=== PATIENT | male | born 1975 | race Caucasian/White ===

== ENCOUNTER 2016-05-05 22:46 | Emergency (ER) | payer MEDICAID ==
[~2016-05-05 22:46] MED LIST: BUPR300T52 PO; FLUO40CA8 PO; GABA800T2 PO; QUET50TA PO; TOPI200T PO
== END 2016-05-05 23:57 | disposition left against medical advice (07) ==
LOC: ER 22:54
DX: Z53.21 Procedure and treatment not carried out due to patient leaving prior to being seen by health care provider (principal)

== ENCOUNTER 2016-07-30 20:48 | Emergency (ER) | payer MEDICAID ==
[~2016-07-30] VITALS: Ht 170.2 cm; Wt 68.0 kg
[2016-07-30] MEDS ORDERED: LORAZEPAM 0.5 MG TABLET PO ONE (21:30)
[2016-07-30] MEDS ORDERED: SULFAMETH/TRIMETH 800/160 MG TABLET PO ONE (21:30)
--- NOTE | 2016-07-30 21:32 | NUR ---
Pt to room and c/o "cellulitis" to bilat hands and feet. Pt c/o severe pain. No redness, no swelling noted. Pt seen by MD. Awaiting further orders.
--- NOTE | 2016-07-30 21:39 | NUR ---
Pt seen by MD. Pt stable for discharge per MD. Pt given ACI. Pt verbalized understanding of dc instructions.
[2016-07-30 21:40] VITALS: BP 136/74
[2016-07-30] MEDS ORDERED: LORAZEPAM 1 MG TABLET ONE (21:47)
[2016-07-30] MEDS ORDERED: SULFAMETH/TRIMETH 800/160 MG TABLET ONE (21:47)
--- NOTE | 2016-07-30 21:58 | NUR ---
pt ambulated out of er with steady gait.
== END 2016-07-30 21:58 | disposition home or self-care (01) ==
LOC: ER 20:52
DX: L03.116 Cellulitis of left lower limb (principal); J45.909 Unspecified asthma, uncomplicated
CPT/HCPCS: A4663

== ENCOUNTER 2016-10-29 17:58 | Emergency (ER) | payer MEDICAID ==
[~2016-10-29] VITALS: Ht 170.2 cm; Wt 70.3 kg
--- NOTE | 2016-10-29 18:45 | NUR ---
at the bedside with the pt for MSE.
--- NOTE | 2016-10-29 21:15 | NUR ---
Patient discharged to home in stable conditon. Written and verbal after care instructions given. Patient verbalizes understanding of instructions. PATIENT LEFT WITH STABLE GAIT.
[2016-10-29 21:16] VITALS: BP 136/83
== END 2016-10-29 21:16 | disposition home or self-care (01) ==
LOC: ER 17:59
DX: S80.11XA Contusion of right lower leg, initial encounter (principal); L73.9 Follicular disorder, unspecified; J45.909 Unspecified asthma, uncomplicated; F17.200 Nicotine dependence, unspecified, uncomplicated; Z59.0 Homelessness; F15.10 Other stimulant abuse, uncomplicated; X58.XXXA Exposure to other specified factors, initial encounter; Y93.89 Activity, other specified; Y92.9 Unspecified place or not applicable; Y99.9 Unspecified external cause status
CPT/HCPCS: 73590; 93971; 99284; A4663

== ENCOUNTER 2017-01-24 03:03 | Emergency (ER) | payer MEDICAID ==
[~2017-01-24] VITALS: Ht 170.2 cm; Wt 70.3 kg
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
[2017-01-24] MEDS ORDERED: VANCOMYCIN IV 1,000 MG in IV DEXTROSE 5% 250 ML IV ONE (04:00)
[2017-01-24] MEDS ORDERED: VANCOMYCIN 1000 MG VIAL ONE (04:46)
--- NOTE | 2017-01-24 05:05 | NUR ---
Removed pt's ring on left pinky with elastic band wrap.
--- NOTE | 2017-01-24 07:04 | NUR ---
Herve-taped right hand pinky and ring fingers, per Dr. Jaquez.
[2017-01-24] MEDS ORDERED: ONDANSETRON IV *ER 4 MG/2 ML VIAL IV ONE (07:15)
[2017-01-24] MEDS ORDERED: HYDROMORPHONE 1 MG/1 ML DISP.SYRIN IV ONE (07:15)
[2017-01-24] MEDS ORDERED: ONDANSETRON 4 MG/2 ML VIAL ONE (07:24)
[2017-01-24] MEDS ORDERED: HYDROMORPHONE 4 MG/1 ML DISP.SYRIN ONE (07:24)
[2017-01-24 07:45] VITALS: BP 142/77
--- NOTE | 2017-01-24 07:46 | NUR ---
pt condition stable d/c home with instructions after care reviewed understood left er via self alert, oriented x4, ambulatory with steady gait.
== END 2017-01-24 07:47 | disposition home or self-care (01) ==
LOC: ER 03:03
DX: S62.92XA Unspecified fracture of left hand, initial encounter for closed fracture (principal); S63.616A Unspecified sprain of right little finger, initial encounter; L03.114 Cellulitis of left upper limb; F11.10 Opioid abuse, uncomplicated; F15.10 Other stimulant abuse, uncomplicated; F32.9 Major depressive disorder, single episode, unspecified; J45.909 Unspecified asthma, uncomplicated; Z59.0 Homelessness; F17.200 Nicotine dependence, unspecified, uncomplicated; X58.XXXA Exposure to other specified factors, initial encounter; Y93.89 Activity, other specified; Y92.89 Other specified places as the place of occurrence of the external cause; Y99.8 Other external cause status
CPT/HCPCS: 73130; A4663; J1170; J2405; J3370; J7060

== ENCOUNTER 2018-04-07 15:36 | Emergency (ER) | payer SELFPAY ==
[~2018-04-07] VITALS: Ht 167.6 cm; Wt 63.5 kg
--- NOTE | 2018-04-07 16:16 | NUR ---
Patient discharged to home in stable conditon. Written and verbal after care instructions given. Patient verbalizes understanding of instructions.PT WALKS IN STEADY GAIT. NO DIZZINESS,
[2018-04-07] MEDS ORDERED: LIDOCAINE HCL 2% 20 ML VIAL TP ONE (16:30)
== END 2018-04-07 16:20 | disposition home or self-care (01) ==
LOC: MERGE 15:38 → ER 15:38
DX: S61.412A Laceration without foreign body of left hand, initial encounter (principal); W25.XXXA Contact with sharp glass, initial encounter; Y93.89 Activity, other specified; Y92.89 Other specified places as the place of occurrence of the external cause; Y99.8 Other external cause status
CPT/HCPCS: A4217; A4663

== ENCOUNTER 2018-04-20 11:41 | Emergency (ER) | payer MEDICAID ==
[~2018-04-20] VITALS: Ht 167.6 cm; Wt 63.5 kg
--- NOTE | 2018-04-20 11:48 | NUR ---
PT A/OX4, PRESENTS TO THE ER FOR SUTURE REMOVAL OF THE L HAND. VSS. SUTURE SITE NON-EDEMATOUS AND NO DRAINAGE. PT DENIES PAIN, C/P, SOB, N/V/D, DIZZINESS, HEADACHE.
--- NOTE | 2018-04-20 11:51 | NUR ---
LAURA PEREZ AT BEDSIDE FOR MSE.
--- NOTE | 2018-04-20 11:57 | NUR ---
SUTURES IN L HAND REMOVED BY ER MD. Patient discharged to home in stable conditon. Written and verbal after care instructions given. Patient verbalizes understanding of instructions. ALL BELONGINGS W/ PT. PT SELF-AMBUALTED W/O DIFFICULTY.
[2018-04-20 11:58] VITALS: BP 130/76
== END 2018-04-20 11:58 | disposition home or self-care (01) ==
LOC: ER 11:41 → MERGE 11:41 → ER 11:58
DX: S61.412D Laceration without foreign body of left hand, subsequent encounter (principal); W26.0XXD Contact with knife, subsequent encounter

== ENCOUNTER 2018-06-21 13:00 | Emergency (ER) | payer MEDICAID ==
[~2018-06-21] VITALS: Ht 165.1 cm; Wt 66.2 kg
--- NOTE | 2018-06-21 13:18 | NUR ---
PT IS IN ROOM #2A. DR SORIANO EVALUATED THE PT. [employer] OFFICERS TOOK PT'S REPORT.
[2018-06-21] MEDS ORDERED: HYDROCODONE/APAP 5-325MG TABLET PO ONE (13:45)
[2018-06-21] MEDS ORDERED: HYDROCODONE/APAP 5-325MG TABLET ONE (13:49)
--- NOTE | 2018-06-21 16:00 | NUR ---
PT WAS D/C'd FROM [facility]. D/C INSTRUCTIONS GIVEN TO THE PT.
[2018-06-21 16:09] VITALS: BP 127/72
== END 2018-06-21 16:10 | disposition home or self-care (01) ==
LOC: ER 13:00
DX: S01.01XA Laceration without foreign body of scalp, initial encounter (principal); J45.909 Unspecified asthma, uncomplicated; F17.200 Nicotine dependence, unspecified, uncomplicated; F11.10 Opioid abuse, uncomplicated; F15.10 Other stimulant abuse, uncomplicated; X99.2XXA Assault by sword or dagger, initial encounter; Y93.89 Activity, other specified; Y92.89 Other specified places as the place of occurrence of the external cause; Y99.8 Other external cause status
CPT/HCPCS: 70450; A4217; A4663

== ENCOUNTER 2018-06-29 17:36 | Emergency (ER) | payer MEDICAID ==
[~2018-06-29] VITALS: Ht 167.6 cm; Wt 65.8 kg
--- NOTE | 2018-06-29 18:06 | NUR ---
PT WAS EVALUATED BY DR OCAMPO. PT TOLERATED TO PROCEDURES WITHOUT COMPLICATIONS. PT WAS D/C TO HOME. D/C INSTRUCTIONS GIVEN TO THE PT.
[2018-06-29 18:11] VITALS: BP 135/77
== END 2018-06-29 18:13 | disposition home or self-care (01) ==
LOC: ER 17:36
DX: S01.01XD Laceration without foreign body of scalp, subsequent encounter (principal); J45.909 Unspecified asthma, uncomplicated; F17.200 Nicotine dependence, unspecified, uncomplicated; F11.10 Opioid abuse, uncomplicated; F15.10 Other stimulant abuse, uncomplicated; Y09 Assault by unspecified means
CPT/HCPCS: A4663

== ENCOUNTER 2019-03-10 11:10 | Emergency (ER) | payer MEDICAID ==
[~2019-03-10] VITALS: Ht 167.6 cm; Wt 72.6 kg
[2019-03-10] MEDS ORDERED: TDAP DIPH,PERTUSS,TET VAC/PF 0.5 ML DISP.SYRIN IM ONE ×2 (11:27→11:30)
--- NOTE | 2019-03-10 11:44 | NUR ---
Patient given written and verbal discharge instructions. Patient verbalizes understanding & compliance of instructions. Patient is ambulatory with brisk steady gait. Patient refuses offer of group home placement. Patient was given list of available shelters in surrounding area. Patient signed the [employer] Patient Waiver Form.
== END 2019-03-10 11:45 | disposition home or self-care (01) ==
LOC: ER 11:11
DX: S61.211A Laceration without foreign body of left index finger without damage to nail, initial encounter (principal); L03.012 Cellulitis of left finger; J45.909 Unspecified asthma, uncomplicated; F32.9 Major depressive disorder, single episode, unspecified; R45.851 Suicidal ideations; F11.10 Opioid abuse, uncomplicated; F15.10 Other stimulant abuse, uncomplicated; F17.200 Nicotine dependence, unspecified, uncomplicated; W26.0XXA Contact with knife, initial encounter; Y93.89 Activity, other specified; Y92.89 Other specified places as the place of occurrence of the external cause; Y99.8 Other external cause status
CPT/HCPCS: 90715; A4663

== ENCOUNTER 2019-06-26 23:36 | Emergency (ER) | payer MEDICAID ==
[~2019-06-26] VITALS: Ht 172.7 cm; Wt 63.5 kg
[2019-06-27] MEDS ORDERED: CLINDAMYCIN PHOSPHATE 600 MG/4 ML VIAL ONE (00:58)
[2019-06-27] MEDS ORDERED: KETOROLAC TROMETHAMINE 30 MG INJ ONE (00:58)
[2019-06-27] MEDS ORDERED: KETOROLAC TROMETHAMINE 30 MG INJ IM ONE (01:00)
[2019-06-27] MEDS ORDERED: CLINDAMYCIN PHOSPHATE 600 MG/4 ML VIAL IM ONE (01:00)
--- NOTE | 2019-06-27 01:04 | NUR ---
Patient given written and verbal discharge instructions. Patient verbalizes understanding of instructions. Patient is ambulatory with steady gait. Refuses offer of nursing home placement. Patient given list of available shelters in surrounding area.
--- NOTE | 2019-06-27 01:04 | NUR ---
Patient discharged to home in stable condition. Written and verbal after care instructions given. Patient verbalizes understanding of instructions. Stressed follow up or return to ER for worsening s/s.
[2019-06-27 01:05] VITALS: BP 141/93
== END 2019-06-27 01:07 | disposition home or self-care (01) ==
LOC: ER 23:39
DX: L02.413 Cutaneous abscess of right upper limb (principal); L02.411 Cutaneous abscess of right axilla; F17.210 Nicotine dependence, cigarettes, uncomplicated; Z59.0 Homelessness; J45.909 Unspecified asthma, uncomplicated
CPT/HCPCS: 96372 ×2; 99284; 99406; J1885; J3490; A4663

== ENCOUNTER 2019-07-03 13:30 | Emergency (ER) | payer MEDICAID ==
[~2019-07-03] VITALS: Ht 167.6 cm; Wt 65.8 kg
--- NOTE | 2019-07-03 14:30 | NUR ---
Patient discharged to home in stable condition. Written and verbal after care instructions given. Patient verbalizes understanding of instructions. Stressed follow up or return to ER for worsening s/s. [facility] DISCHARGE WAIVER SIGNED AMBULATORY W/ STABLE GAIT ALL BELONGINGS W/ PT
[2019-07-03 14:32] VITALS: BP 127/80
== END 2019-07-03 14:33 | disposition home or self-care (01) ==
LOC: ER 13:30
DX: L02.414 Cutaneous abscess of left upper limb (principal); Z59.0 Homelessness; F15.10 Other stimulant abuse, uncomplicated; J45.909 Unspecified asthma, uncomplicated; F17.200 Nicotine dependence, unspecified, uncomplicated
CPT/HCPCS: A4663

== ENCOUNTER 2019-10-16 14:55 | Emergency (ER) | payer MEDICAID ==
[~2019-10-16] VITALS: Ht 162.6 cm; Wt 63.5 kg
--- NOTE | 2019-10-16 15:10 | NUR ---
Pt c/o skin infection bilateral lower legs, Hx daily IV drug use (meth), pain and redness, mid calf area, anterior. Pt denies CP, SOB, dizziness, n/v, no other complaints, no distress noted.
[2019-10-16] MEDS ORDERED: KETOROLAC TROMETHAMINE 30 MG INJ IM ONE (15:30)
[2019-10-16] MEDS ORDERED: KETOROLAC TROMETHAMINE 30 MG INJ ONE (15:48)
[2019-10-16 16:09] LABS: BASOPHILS % (AUTO) 0.5 % (0.0-2.0); EOSINOPHILS # (AUTO) 0.2 K/uL (0.0-0.7); EOSINOPHILS % (AUTO) 1.6 % (0.0-7.0); HEMATOCRIT 39.8 % (36.7-47.1); HEMOGLOBIN 13.5 g/dL (12.5-16.3); LYMPHOCYTES # (AUTO) 2.1 K/uL (20.0-40.0); LYMPHOCYTES % (AUTO) 22.6 % (20.5-51.5); MEAN CORPUSCULAR HEMOGLOBIN 30.8 uug (23.8-33.4); MEAN CORPUSCULAR HGB CONC 34 g/dL (32.5-36.3); MEAN CORPUSCULAR VOLUME 90.5 fL (73.0-96.2); MONOCYTES # (AUTO) 0.7 K/uL (2.0-10.0); MONOCYTES % (AUTO) 7.9 % (0.0-11.0); NEUTROPHILS # (AUTO) 6.3 K/uL (1.8-8.9); NEUTROPHILS % (AUTO) 67.4 % (38.5-71.5); PLATELET COUNT (AUTO) 326 K/uL (152-348); WHITE BLOOD COUNT (AUTO) 9.4 K/uL (3.6-10.2)
[2019-10-16 16:14] LABS: CREATININE 0.9 mg/dL (0.6-1.3); POTASSIUM 3.6 mmol/L (3.5-5.1)
--- NOTE | 2019-10-16 16:41 | NUR ---
Gave pt RX and d/c instructions, pt verbalized understanding.
== END 2019-10-16 16:46 | disposition home or self-care (01) ==
LOC: ER 14:55
DX: M79.662 Pain in left lower leg (principal); M79.661 Pain in right lower leg; L02.416 Cutaneous abscess of left lower limb; L02.415 Cutaneous abscess of right lower limb; F17.210 Nicotine dependence, cigarettes, uncomplicated; J45.909 Unspecified asthma, uncomplicated
CPT/HCPCS: 36415; 76882; 80048; 82550; 85025; 87040 ×2; 96372; 99284; J1885; A4663

== ENCOUNTER 2019-12-08 22:45 | Emergency (ER) | payer MEDICAID, OTHER ==
[~2019-12-08] VITALS: Ht 167.6 cm; Wt 63.5 kg
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
[2019-12-08] MEDS ORDERED: BACITRACIN ZINC OINT 15 GM TUBE TOP STA (23:04)
[2019-12-08] MEDS ORDERED: BACITRACIN OPHT OINT 3.5 GM TUBE ONE (23:12)
--- NOTE | 2019-12-08 23:39 | NUR ---
Patient is medically cleared for incarceration per Dr. Han. Patient left ER in [employer] custody with Officer Michael [id number] & Officer Abhinav [id number]. [id number].
[2019-12-08 23:41] VITALS: BP 138/100
== END 2019-12-08 23:41 ==
LOC: ER 22:45
DX: S09.90XA Unspecified injury of head, initial encounter (principal); S00.31XA Abrasion of nose, initial encounter; Y09 Assault by unspecified means; Y92.89 Other specified places as the place of occurrence of the external cause; M79.642 Pain in left hand; R00.0 Tachycardia, unspecified; L02.419 Cutaneous abscess of limb, unspecified; F15.10 Other stimulant abuse, uncomplicated; F11.10 Opioid abuse, uncomplicated; J45.909 Unspecified asthma, uncomplicated; F17.200 Nicotine dependence, unspecified, uncomplicated
CPT/HCPCS: 73130; A4663; J3590